=== PATIENT | female | born 1940 | race Caucasian/White ===

== ENCOUNTER 2018-08-11 13:53 | Inpatient (IN) | payer MEDICARE ==
[~2018-08-11] VITALS: Ht 170.2 cm; Wt 65.8 kg
--- NOTE | 2018-08-11 13:58 | NUR ---
S/P MECHANICAL FALL C/O LEFT HIP PAIN, -KO, CMS INTACT, + ABRASION ON LEFT FA, AND LEFT ANKLE. PATIENT A/OX4, BREATHING EVEN AND UNLABORED, NO SOB NOTED, KEPT COMFORTABLE IN BED, PLACED ON THE MONITOR.
[2018-08-11] MEDS ORDERED: IV NS 0.9% 1,000 ML BAG IV ONE (14:30)
[2018-08-11] MEDS ORDERED: TDAP [DIPH/PERTUSSIS/TET] 0.5 ML VIAL IM ONE ×2 (14:30→14:42)
[2018-08-11] MEDS ORDERED: KETOROLAC TROMETHAMINE INJ 30 MG/ML VIAL IV ONE (14:30)
[2018-08-11 14:36] LABS: BASOPHILS % (AUTO) 0.4 % (0.0-2.0); EOSINOPHILS % (AUTO) 0.3 % (0.0-6.0); HEMATOCRIT 40 % (33-45); LYMPHOCYTES # (AUTO) 0.5 /CMM (0.8-4.8); LYMPHOCYTES % (AUTO) 4.5 % (20.0-44.0); MEAN CORPUSCULAR HGB CONC 33 g/dl (31.0-36.0); MEAN CORPUSCULAR VOLUME 97 fL (82-100); MONOCYTES # (AUTO) 0.7 /CMM (0.1-1.30); MONOCYTES % (AUTO) 6.3 % (2.0-12.0); NEUTROPHILS # (AUTO) 9.4 /CMM (1.8-8.9); NEUTROPHILS % (AUTO) 88.5 % (43.0-81.0); PLATELET COUNT (AUTO) 200 /CMM (150-450); RED BLOOD CELL COUNT(AUTO) 4.07 MIL/uL (4.0-5.2); WHITE BLOOD COUNT (AUTO) 10.7 K/uL (4.3-11.0)
--- NOTE | 2018-08-11 14:40 | NUR ---
abrasion cleansed and covered.
[2018-08-11 14:43] LABS: CALCIUM, SERUM 8.7 mg/dL (8.5-10.1); CARBON DIOXIDE 31 mmol/L (21-32); CHLORIDE 105 mmol/L (98-107); CREATININE 0.7 mg/dL (0.6-1.3); GLUCOSE 103 mg/dL (74-106); POTASSIUM 4.1 mmol/L (3.5-5.1); SODIUM SERUM 141 mmol/L (136-145); UREA NITROGEN, BLOOD 16 mg/dL (7-18)
--- NOTE | 2018-08-11 14:50 | NUR ---
hip xray taken.
--- NOTE | 2018-08-11 15:39 | NUR ---
TRU RODRIGUEZ IS SAMPLE SHOE INSPECTOR AND REWORKER AND PAGED.
[2018-08-11] MEDS ORDERED: LATA2.5D7 EACHEYE (15:52)
[2018-08-11] MEDS ORDERED: BRIM5DRO3 LEFTEYE (15:52)
--- NOTE | 2018-08-11 16:24 | NUR ---
PATIENT A/OX3, KEPT COMFORTABLE, NO DISTRESS NOTED.
--- NOTE | 2018-08-11 16:29 | NUR ---
REPORT GIVEN TO ISREAL RAMIRES.
--- NOTE | 2018-08-11 16:51 | NUR ---
PATIENT TRANSFERRED TO ROOM 202 IN STABLE CONDITION. PATIENT ABLE TO MOVE BLE. NO DISTRES NOTED.
[2018-08-11] MEDS ORDERED: IV NS 0.9% 1,000 ML IV PRN (17:00)
[2018-08-11] MEDS ORDERED: KETOROLAC TROMETHAMINE INJ 30 MG/ML VIAL IV PRN (17:00)
[2018-08-11] MEDS ORDERED: HYDROCODONE/APAP 5/325MG 1 EACH TABLET PO PRN (17:00)
[2018-08-11] MEDS ORDERED: MAG HYDROX/AL HYDROX/SIMETH 30 ML UDC PO PRN (17:00)
[2018-08-11] MEDS ORDERED: ONDANSETRON HCL/PF 4 MG/2 ML VIAL IVP PRN (17:00)
[2018-08-11] MEDS ORDERED: MAGNESIUM HYDROXIDE 30 ML UDC PO PRN (17:00)
[2018-08-11] MEDS ORDERED: ZOLPIDEM TARTRATE 5 MG TABLET PO PRN (17:00)
[2018-08-11] MEDS: SENNOSIDES/DOCUSATE SODIUM 1 TAB TABLET PO SCH (17:00)
[2018-08-11] MEDS ORDERED: Z GUARD REMEDY 2 OZ OINT TP PRN (17:00)
--- NOTE | 2018-08-11 17:00 | NUR ---
ADMISSION NOTE PT WAS BROUGHT UP VIA GURNEY AT THIS TIME, A/O X3, BREATHING EVEN AND UNLABORED ON RA, CURRENT COMPLAINT OF PAIN ON LEFT SIDE OF BODY, IV IS PATENT AND INTACT, SAFETY PRECAUTIONS IN PLACE, CALL LIGHT WITHIN REACH, WILL MONITOR PT ACCORDINGLY.
[2018-08-11 17:30] VITALS: BP 113/56
[2018-08-11] MEDS: ACETAMINOPHEN 325 MG TABLET PO PRN (17:55)
--- NOTE | 2018-08-11 19:21 | NUR ---
RN CLOSING NOTE PT IN BED AT LOWEST AND LOCKED POSITION WITH SIDE RAILS UP X2, A/O X3, BREATHING EVEN AND UNLABORED ON RA, NO S/S OF ANY DISTRESS OR PAIN NOTED AT THIS TIME, IV IS PATENT AND INTACT WITH IVF CURRENTLY INFUSING, WOUND CARE CONSULT ORDERED FOR WOUNDS, ALL NEEDS ATTENDED TO, SAFETY PRECAUTIONS IN PLACE, CALL LIGHT WITHIN REACH, WILL ENDORSE TO CUSTOMER SOLUTIONS TEAMMATE RN FOR DIPIKA.
--- NOTE | 2018-08-11 19:40 | NUR ---
MS/RN OPENING NOTES PT RECEIVED AWAKE, ON ROOM AIR, BREATHING EVEN AND UNLABORED. IN NO ACUTE DISTRESS. TALKING ON THE PHONE. NOTES SOME PAIN TO BILAT. HIPS BUT DOES NOT WANT MEDICATIONS STRONGER THAN TYLENOL. EDUCATION PROVIDED ON PAIN CONTROL AND OPTIONS FOR MEDS FOR PAIN MANAGEMENT. VERBALIZED UNDERSTANDING. IV TO RAC PATENT AND INTACT RUNNING IVF ORDERED. BED IN LOW/LOCKED POSITION WITH CALL LIGHT IN REACH. HOB ELEVATED. BILAT. UPPER SIDE RAILS IN PLACE. WILL CONTINUE TO MONITOR
[2018-08-11 20:00] VITALS: BP 101/47
[2018-08-11] MEDS ORDERED: ENOXAPARIN SODIUM 40 MG/0.4 ML DISP.SYRIN SQ SCH (21:00)
--- NOTE | 2018-08-11 21:45 | NUR ---
PHILIP HENDRICKS AT BEDSIDE
[2018-08-11] MEDS: ASPIRIN 325 MG TABLET PO SCH (22:10)
[2018-08-11] MEDS ORDERED: BRIMONIDINE TARTRATE OPHT SOLN 5 ML BOTTLE LEFTEYE SCH (22:30)
[2018-08-12 06:32] LABS: BASOPHILS % (AUTO) 0.6 % (0.0-2.0); EOSINOPHILS % (AUTO) 0.3 % (0.0-6.0); HEMATOCRIT 34 % (33-45); HEMOGLOBIN 11.3 g/dL (11.5-14.8); LYMPHOCYTES # (AUTO) 0.6 /CMM (0.8-4.8); LYMPHOCYTES % (AUTO) 11.7 % (20.0-44.0); MEAN CORPUSCULAR HGB CONC 34 g/dl (31.0-36.0); MEAN CORPUSCULAR VOLUME 96 fL (82-100); MONOCYTES # (AUTO) 0.6 /CMM (0.1-1.30); MONOCYTES % (AUTO) 11.1 % (2.0-12.0); NEUTROPHILS % (AUTO) 76.3 % (43.0-81.0); PLATELET COUNT (AUTO) 161 /CMM (150-450); RED BLOOD CELL COUNT(AUTO) 3.48 MIL/uL (4.0-5.2); WHITE BLOOD COUNT (AUTO) 5.2 K/uL (4.3-11.0)
[2018-08-12] MEDS: ACETAMINOPHEN 325 MG TABLET PO PRN ×2 (06:41→14:53)
[2018-08-12 06:52] LABS: CHOLESTEROL 159 mg/dL (<200); HDL CHOLESTEROL 69 mg/dL (40-60); LDL 80 mg/dL (0-99); TRIGLYCERIDES 33 mg/dL (30-150)
[2018-08-12 07:00] LABS: CARBON DIOXIDE 29 mmol/L (21-32); CHLORIDE 109 mmol/L (98-107); CREATININE 0.6 mg/dL (0.6-1.3); GLUCOSE 102 mg/dL (74-106); PHOSPHORUS 3.2 mg/dL (2.5-4.9); POTASSIUM 3.6 mmol/L (3.5-5.1); SODIUM SERUM 144 mmol/L (136-145); UREA NITROGEN, BLOOD 11 mg/dL (7-18)
--- NOTE | 2018-08-12 07:39 | NUR ---
MS/RN CLOSING NOTES PT AWAKE, RESTING COMFORTABLY IN BED. ON ROOM AIR. BREATHING EVEN AND UNLABORED. DENIES SOB, WITH C/O PAIN UPON MOVEMENT. REQUESTED TYLENOL AND ADMINISTERED ORDERED. IV TO RAC PATENT AND INTACT. NO SIGNIFICANT CHANGES OVERNIGHT. ALL NEEDS MET. TURNED/REPOSITIONED PT TOLERATED. BED IN LOW/LOCKED POSITION WITH CALL LIGHT IN REACH. BILAT. UPPER SIDE RAILS IN PLACE. HOB ELEVATED. ENDORSED TO DAY SHIFT RN DIPIKA.
--- NOTE | 2018-08-12 07:40 | NUR ---
MS RN OPENING NOTE RECEIVED PT IN BED, ALERT AND ORIENTED X4, DENIES CHEST PAIN, SOB, N/V. BREATHING IS EVEN AND UNLABORED ON ROOM AIR. NO ACUTE DISTRESS NOTED AT THIS TIME. RIGHT AC #20G IV IS SALINE LOCKED WITHOUT REDNESS OR SWELLING. ALL NEEDS ATTENDED TO. SCDS IN PLACE. BED IS LOCKED AND IN LOWEST POSITION, SIDE RAILS UP X2, BED ALARM ON, CALL LIGHT AND POSSESSIONS WITHIN REACH.
[2018-08-12 08:00] VITALS: BP 100/52
--- NOTE | 2018-08-12 08:13 | NUR ---
WOUND CARE CONSULT: PT PRESENTS WITH LEFT LATERAL ANKLE AND LEFT WRIST/HAND AND LEFT ARM ABRASIONS, PRESENT ON ADMISSION. 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 RECOMMENDATIONS MADE FOR SKIN PROTECTION AND WOUND CARE. DISCUSSED WITH NURSING STAFF. WILL SEE PRN. POE IN AGREEMENT WITH PLAN OF CARE. Addendum: 08/12/18 at 0815 by KAUSHAL CLARKE WNDNU Amended: Links added.
--- NOTE | 2018-08-12 08:40 | NUR ---
MS RN NOTE CALLED PHARMACY TO REQUEST BRIMONIDINE GTTS, AWAITING RECEIPT.
[2018-08-12] MEDS: SENNOSIDES/DOCUSATE SODIUM 1 TAB TABLET PO SCH (08:48)
[2018-08-12] MEDS: ASPIRIN 325 MG TABLET PO SCH (08:48)
--- NOTE | 2018-08-12 09:10 | NUR ---
MS RN NOTE CALLED PHARMACY TO REQUEST BRIMONIDINE GTTS. AWAITING RECEIPT.
[2018-08-12] MEDS: MINERAL OIL/PETROL OINT 396 GM JAR TP SCH (09:21)
[2018-08-12] MEDS: BRIMONIDINE TARTRATE OPHT SOLN 5 ML BOTTLE LEFTEYE SCH ×2 (09:56→16:24)
[2018-08-12] MEDS ORDERED: KETOROLAC TROMETHAMINE INJ 30 MG/ML VIAL IV PRN (11:30)
[2018-08-12 16:04] VITALS: BP 95/43
--- NOTE | 2018-08-12 18:12 | NUR ---
MS RN CLOSING NOTE PT IN BED, ALERT AND ORIENTED X4, DENIES CHEST PAIN, SOB, N/V. BREATHING IS EVEN AND UNLABORED ON ROOM AIR. NO ACUTE DISTRESS NOTED AT THIS TIME. RIGHT AC #20G IV IS SALINE LOCKED WITHOUT REDNESS OR SWELLING. ADLS AND WOUND CARE PROVIDED ORDERED AND PT ASSISTED TO TURN AND REPOSITION Q2H FOR THE DURATION OF THE SHIFT. ALL NEEDS ATTENDED TO. SCDS IN PLACE. BED IS LOCKED AND IN LOWEST POSITION, SIDE RAILS UP X2, BED ALARM ON, CALL LIGHT AND POSSESSIONS WITHIN REACH. WILL ENDORSE TO ORE DIGGER NURSE FOR CONTINUITY OF CARE.
[2018-08-12 20:00] VITALS: BP 90/64
[2018-08-12 20:22] VITALS: BP 94/61
--- NOTE | 2018-08-12 20:33 | NUR ---
RN NOTES PATIENT IS ALERT AND ORIENTED X3, STABLE ON ROOM AIR, AFEBRILE, SBP LOW 90'S TO MID 90'S, COMPLAINING OF PAIN TO RIGHT HIP, PER PATIENT, PAIN IS MANAGEABLE. ON BEDREST, ASSIST TO BSC, KEPT COMFORTABLE, CALL LIGHT WITHIN REACH.
[2018-08-12] MEDS: LATANOPROST EYE DROP 0.005% 2.5 ML BOTTLE EACHEYE SCH (21:20)
--- NOTE | 2018-08-13 06:21 | NUR ---
RN NOTES PATIENT IS ALERT AND ORIENTED X3, ON ROOM AIR, BEDREST, ASSISTED TO BSC, AFRAID TO MOVE DUE TO PAIN OF LEFT HIP AND LEG, REFUSED NORCO, GIVEN TORADOL, NO SURGICAL INTERVENTION PER ORTHO
--- NOTE | 2018-08-13 07:30 | NUR ---
MS/RN Patient received. Patient received from plant operator/shift supervisor. A/O X4, vital signs within range for patient. Pain scale currently 5/10, does not want to take any pain meds at this time. Heels off loaded on two pillows to prevent further skin breakdown. Safety measures in place, bed in low setting, side rails X3 in right position. Will continue to monitor and ensure safety.
[2018-08-13 08:03] VITALS: BP 98/63
[2018-08-13] MEDS: ASPIRIN 325 MG TABLET PO SCH (08:05)
[2018-08-13] MEDS: ACETAMINOPHEN 325 MG TABLET PO PRN (08:05)
[2018-08-13] MEDS: SENNOSIDES/DOCUSATE SODIUM 1 TAB TABLET PO SCH (08:05)
[2018-08-13] MEDS: BRIMONIDINE TARTRATE OPHT SOLN 5 ML BOTTLE LEFTEYE SCH ×2 (08:06→16:24)
[2018-08-13] MEDS: MINERAL OIL/PETROL OINT 396 GM JAR TP SCH (08:06)
--- NOTE | 2018-08-13 08:30 | NUR ---
MS/RN Medications Morning medications administered as ordered, along with 650mg tylenol for pain to pelic area 08/15. Patient refusing stronger medication.
--- NOTE | 2018-08-13 11:15 | NUR ---
MS/sandwich board carrier Patient seen by patient case coordinator as requesting further information regarding possible short term rehab at [place].
[2018-08-13] MEDS ORDERED: POLYETHYLENE GLYCOL 3350 17 GM POWD.PACK PO PRN (14:00)
--- NOTE | 2018-08-13 14:00 | NUR ---
MS/RN S/B Rivka Costello INDEPENDENT BEAUTY CONSULTANT Seen by INDEPENDENT BEAUTY CONSULTANT - patient to remain in the hospital overnight with possible discharge tomorrow. Patient will either go home with home health or to [facility].
--- NOTE | 2018-08-13 16:00 | NUR ---
MS/architectural job captain plan Long discussion with patient regarding placement upon discharge. Patient feels that it would be in her best interests to go to rehab as she lives alone and feels that she would be a burden to her niece if she were to stay there [facility]. manager endoscopy and MARTIAL ARTS INSTRUCTOR both made aware. Per Emperatriz, patient has already been accepted at [facility] and they are holding a bed for her.
[2018-08-13 16:01] VITALS: BP 98/50
--- NOTE | 2018-08-13 18:53 | NUR ---
MS/RN End note Large BM this evening. No neew needs or concerns addressed, will endore to welder 2nd shift.
[2018-08-13 20:00] VITALS: BP 102/56
[2018-08-13] MEDS: LATANOPROST EYE DROP 0.005% 2.5 ML BOTTLE EACHEYE SCH (22:18)
--- NOTE | 2018-08-14 06:29 | NUR ---
MS RN NOTES AWAKE & RESPONSIVE. NOT IN ANY DISTRESS. NO SOB NOTED. DENIES ANY PAIN OR DISCOMFORT AT THIS TIME. WITH IV-HL PATENT & INTACT. CALL LIGHT WITHIN REACH. BED IN LOWEST POSITION. SR UP X 2 FOR SAFETY. WILL ENDORSE TO NEXT SHIFT.
[2018-08-14] MEDS: ACETAMINOPHEN 325 MG TABLET PO PRN ×2 (06:43→18:13)
--- NOTE | 2018-08-14 07:52 | NUR ---
MS RN NOTES PATIENT RESTING INSIDE ROOM. AWAKE, ALERT AND ORIENTED X 4, VERBALLY RESPONSIVE AND RESPONDS TO VERBAL AND TACTILE STIMULI. BREATHING EVEN AND UNLABORED. NO ACUTE DISTRESS NOTED. PATIENT CALM AND RELAXED. NO CHANGES IN LOC NOTED AT THIS TIME. WILL CONTINUE TO MONITOR. BED LOCKED AND IN LOW POSITION. BILATERAL UPPER SIDE RAILS UP AND LOCKED. CALL LIGHT WITHIN EASY REACH
[2018-08-14 08:00] VITALS: BP 95/51
[2018-08-14] MEDS: SENNOSIDES/DOCUSATE SODIUM 1 TAB TABLET PO SCH (08:19)
[2018-08-14] MEDS: ASPIRIN 325 MG TABLET PO SCH (08:19)
[2018-08-14] MEDS: MINERAL OIL/PETROL OINT 396 GM JAR TP SCH (08:21)
[2018-08-14] MEDS: BRIMONIDINE TARTRATE OPHT SOLN 5 ML BOTTLE LEFTEYE SCH ×2 (08:21→16:16)
--- NOTE | 2018-08-14 11:30 | NUR ---
MS RN NOTES PATIENT REMOVED IV ON RIGHT ARM, NO ACTIVE BLEEDING NOTED, IV TIP INTACT, PRESSURE DRESSING PLACED ON SITE. PATIENT DOES NOT WANT TO HAVE ANY MORE IV INSERTIONS, RISKS AND BENEFITS EXPLAINED BUT TO NO AVAIL. HOSPITALIST MADE AWARE AND GAVE OK. WILL CONTINUE TO MONITOR
[2018-08-14] MEDS ORDERED: ASPI-992 PO (13:32)
[2018-08-14] MEDS ORDERED: [UNRECOGNIZED DRUG - CODE] PO (13:32)
[2018-08-14] MEDS ORDERED: KETO30VI14 IV (13:32)
[2018-08-14] MEDS ORDERED: POLY17PO4 PO (13:32)
[2018-08-14 16:00] VITALS: BP 110/79
--- NOTE | 2018-08-14 16:30 | NUR ---
MS RN NOTES PLACED CALL TO [facility] ([phone]) AND GAVE REPORT TO FELIX RAMIRES
--- NOTE | 2018-08-14 19:22 | NUR ---
MS RN NOTES PATIENT DISCHARGED TODAY. TO BE DISCHARGED TO [facility]. DISCHARGE INSTRUCTIONS AND EDUCATION PROVIDED TO PATIENT AND VERBALIZED UNDERSTANDING. ALL BELONGINGS COMPLETE ON DISCHARGE, NO REPORT OF MISSING INVENTORY, PATIENT LEFT UNIT AT 1905 VIA GURNEY IN STABLE CONDITION. NO ACUTE DISTRESS. NO C/O PAIN OR DISCOMFORT. NO NEW SKIN BREAKDOWN ON DISCHARGE. HOSPITALIST AWARE OF DISCHARGE
== END 2018-08-14 19:05 | DRG 536 ==
LOC: ER 13:55 → MEDSG2 16:22
PROVIDERS: ADMIT Nurse Practitioner Acute Care; ATTEND Nurse Practitioner Acute Care
DX: S32.810A Multiple fractures of pelvis with stable disruption of pelvic ring, initial encounter for closed fracture (principal); D68.59 Other primary thrombophilia; W01.0XXA Fall on same level from slipping, tripping and stumbling without subsequent striking against object, initial encounter; Y93.9 Activity, unspecified; Y92.009 Unspecified place in unspecified non-institutional (private) residence as the place of occurrence of the external cause; M54.9 Dorsalgia, unspecified; Z96.643 Presence of artificial hip joint, bilateral
CPT/HCPCS: 36415; 71045-TC; 72170-TC; 73070-TC; 73100-TC; 73600-TC; 80048-TC; 80061-TC; 83735-TC; 84100-TC; 85025-TC; 87081-TC; 90715; 97530-TC; A6253; A6402; A6403; G0378; J1650; J1885; J2405; J7030